=== PATIENT | male | born 1965 | race Hispanic/Latino ===

== ENCOUNTER 2023-10-13 07:30 | Day surgery (SDC) | payer OTHER ==
[2023-10-12 10:17] VITALS: BMI 31.3
[~2023-10-13 07:30] MED LIST: EPINEPHrine 0.3 MG in Ophthalmic Irrigation Solution 500 ML IRR SCH
[2023-10-13] MEDS ORDERED: Cyclopentolate 1% Opth Drop 2 ML BOT ONE (07:58)
[2023-10-13] MEDS ORDERED: PHENYLephrine 2.5% Ophth Soln 15 ml Bottle ONE (07:58)
[2023-10-13] MEDS ORDERED: PROPOFOL 20 ML ONE (08:08)
[2023-10-13] MEDS ORDERED: fentaNYL 50 mcg/mL 1 mL Vial ONE (08:09)
[2023-10-13] MEDS ORDERED: Lidocaine 1% PF 5 ML VIAL ONE ×2 (08:14→09:44)
[2023-10-13] MEDS ORDERED: Midazolam HCl 2 mg/2 ml Vial ONE (08:22)
[2023-10-13] MEDS ORDERED: Maxitrol 0.1% Opth Oint 3.5 GM TUBE ONE (09:44)
[2023-10-13] MEDS ORDERED: Bupivacaine 0.75% 10 ML VIAL ONE (09:44)
[2023-10-13] MEDS ORDERED: Lidocaine 4% PF 5 ML AMP ONE (09:44)
[2023-10-13] MEDS ORDERED: CEFAZOLIN 1 GM VIAL ONE (09:44)
[2023-10-13] MEDS ORDERED: Triamcinolone 40 MG/ML VIAL ONE (09:44)
[2023-10-13] MEDS ORDERED: Ondansetron PF 4 MG/2 ML Vial ONE (09:45)
[2023-10-13] MEDS ORDERED: Dexamethasone 4 mg/ml Vial ONE (09:45)
[2023-10-13] MEDS ORDERED: PHENYLEPHRINE-NS 100 MCG/ML 10 ML SYRINGE ONE (09:53)
== END 2023-10-13 12:30 | disposition home or self-care (01) ==
LOC: SDC 07:30
PROVIDERS: ATTEND Ophthalmology Retina Specialist
PROC: 08PJ3JZ Removal of Synthetic Substitute from Right Lens, Percutaneous Approach (ICD-10-PCS; principal; 2023-10-13)
PROC: 08T43ZZ Resection of Right Vitreous, Percutaneous Approach (ICD-10-PCS; principal; 2023-10-13)
PROC: 08RJ3JZ Replacement of Right Lens with Synthetic Substitute, Percutaneous Approach (ICD-10-PCS; principal; 2023-10-13)
DX: H43.311 Vitreous membranes and strands, right eye (principal); T85.22XD Displacement of intraocular lens, subsequent encounter
CPT/HCPCS: J0171; J0690; J1100; J2250; J2405; J2704; J3010; J3301; J3490